=== PATIENT | female | born 1990 | race Caucasian/White ===

== ENCOUNTER 2016-06-07 23:14 | Emergency (ER) | payer OTHER | END 2016-06-07 23:20 | disposition left against medical advice (07) | LOC: CED 23:14 | DX: Z53.21 Procedure and treatment not carried out due to patient leaving prior to being seen by health care provider (principal) ==

== ENCOUNTER 2016-10-27 01:23 | Emergency (ER) | payer OTHER ==
[~2016-10-27] VITALS: Ht 167.6 cm; Wt 99.8 kg
== END 2016-10-27 04:05 | disposition left against medical advice (07) ==
LOC: CED 01:23
DX: Z53.21 Procedure and treatment not carried out due to patient leaving prior to being seen by health care provider (principal)